=== PATIENT | female | born 1940 | race African-American/Black ===

== ENCOUNTER 2020-09-03 17:03 | Emergency (ER) | payer MEDICARE, MEDICAID ==
[~2020-09-03] VITALS: Ht 167.6 cm; Wt 76.0 kg
[2020-09-03] MEDS ORDERED: OLANZAPINE 10 MG/VIAL IM STA (18:50)
[2020-09-03] MEDS ORDERED: LORAZEPAM 2MG/ML CPJ IM ONE (19:30)
[2020-09-03 20:17] LABS: CLARITY URINE CLEAR (CLEAR); COLOR URINE YELLOW (YELLOW); KETONES URINE NEGATIVE (NEGATIVE); LEUKOCYTE ESTERASE URINE NEGATIVE (NEGATIVE); NITRITE URINE NEGATIVE (NEGATIVE); OCCULT BLOOD URINE NEGATIVE (NEGATIVE); PH URINE 7.5 (4.5-8.0); PROTEIN URINE NEGATIVE (NEGATIVE); SPECIFIC GRAVITY URINE 1.006 (1.005-1.030); UROBILINOGEN URINE 0.2 E.U./dL (0.2-1.0)
[2020-09-03] MEDS ORDERED: SODIUM CHLORIDE 0.9% 1,000 ML IV ONE (20:45)
[2020-09-03 20:58] LABS: *AMPHETAMINES SCREEN URINE NEGATIVE (NEGATIVE); *BARBITURATES SCREEN URINE NEGATIVE (NEGATIVE); *BENZODIAZEPINES SCREEN URINE NEGATIVE (NEGATIVE); *COCAINE SCREEN URINE NEGATIVE (NEGATIVE); CANNABINOID URINE SCREEN NEGATIVE (NEGATIVE); METHADONE URINE SCREEN NEGATIVE (NEGATIVE); OPIATES URINE SCREEN NEGATIVE (NEGATIVE); PHENCYCLIDINE URINE SCREEN NEGATIVE (NEGATIVE)
[2020-09-03 21:04] LABS: BG BASE EXCESS 1.1 mmol/L (-2.0-2.0); BG CARBOXYHEMOGLOBIN 0.1 % (0.5-1.5); BG DEOXYHEMOGLOBIN 5.3 % (0.0-5.0); BG HCO3 ACT 26.4 mmol/L (22.0-26.0); BG METHEMOGLOBIN 0.2 % (0.0-1.5); BG OXYGEN SATURATION 94.7 % (92.0-98.5); BG OXYHEMOGLOBIN 94.4 % (94.0-97.0); BG PCO2 44.6 mmHg (35.0-45.0); BG PO2 74.2 mmHg (75.0-100.0); BG SAMPLE SITE RIGHT RADIAL; BG TOTAL HEMOGLOBIN 11.3 g/dL (12.0-18.0); BG VENT MODE ROOM AIR
[2020-09-03 21:53] LABS: HEMATOCRIT. 32.2 % (36.0-48.0); HEMOGLOBIN. 10.3 g/dL (12.0-16.0); MEAN CORPUSCULAR HEMOGLOBIN 26.3 pg (28.0-32.0); MEAN CORPUSCULAR VOLUME 81.9 fL (81.0-99.0); MEAN PLATELET VOLUME 7.7 fl (7.4-10.4); PLATELET 225 x1000/uL (130-400); RED BLOOD CELL COUNT 3.93 mill/uL (4.2-5.4); RED CELL DISTRIBUTION WIDTH 17.2 % (11.6-14.6)
[2020-09-03 21:57] LABS: CHLORIDE 109 mEq/L (98-107)
[2020-09-03 22:04] LABS: ETHANOL BLOOD < 10 mg/dL
[2020-09-03 22:41] LABS: PLATELET ESTIMATE NORMAL
[2020-09-04] MEDS: POTASSIUM CHLORIDE 20MEQ TABLET SR PO ONE ×2 (13:04→20:12)
[2020-09-04] MEDS ORDERED: LORAZEPAM 1MG TABLET PO ONE (20:45)
[2020-09-04] MEDS ORDERED: TRAZODONE HCL 50MG TABLET PO SCH (22:00)
[2020-09-04] MEDS ORDERED: ACETAMINOPHEN 500MG TABLET PO ONE (23:00)
[2020-09-05] MEDS ORDERED: HYDROCODONE/ACETAMINOPHEN 5/325MG TABLET PO ONE (15:30)
[2020-09-05] MEDS ORDERED: LORAZEPAM 2MG/ML CPJ IM ONE (16:30)
[2020-09-05] MEDS ORDERED: OLANZAPINE 10 MG/VIAL IM ONE (20:30)
[2020-09-06] MEDS ORDERED: ACETAMINOPHEN 325MG TABLET PO ONE (11:00)
[2020-09-06] MEDS ORDERED: IBUPROFEN 600MG TABLET PO ONE (13:15)
[2020-09-06 16:00] VITALS: BP 130/80
== END 2020-09-06 19:48 | disposition home or self-care (01) ==
LOC: ER 17:03
DX: T43.592A Poisoning by other antipsychotics and neuroleptics, intentional self-harm, initial encounter (principal); T14.91XA Suicide attempt, initial encounter; I10 Essential (primary) hypertension; D64.9 Anemia, unspecified; F19.10 Other psychoactive substance abuse, uncomplicated; Z93.0 Tracheostomy status; Z98.890 Other specified postprocedural states; Z87.891 Personal history of nicotine dependence; Y92.89 Other specified places as the place of occurrence of the external cause
CPT/HCPCS: 36415; 36600; 70450; 71045; 80053; 80305; 80307; 80320; 80329; 81003; 82375; 82805; 84484; 85025; 93005; 96372; 99285; J2060; J3490; G0480

== ENCOUNTER 2022-02-20 14:50 | Emergency (ER) | payer MEDICARE, MEDICAID, BC ==
[~2022-02-20] VITALS: Ht 154.9 cm; Wt 57.0 kg
[2022-02-20 14:53] VITALS: BP 156/77
== END 2022-02-20 18:16 | disposition home or self-care (01) ==
LOC: ER 14:50
DX: T17.408A Unspecified foreign body in trachea causing other injury, initial encounter (principal); R51.9 Headache, unspecified; I10 Essential (primary) hypertension; Z93.0 Tracheostomy status; Z98.890 Other specified postprocedural states; X58.XXXA Exposure to other specified factors, initial encounter; Y93.89 Activity, other specified; Y92.89 Other specified places as the place of occurrence of the external cause; Y99.8 Other external cause status
CPT/HCPCS: 70490; 71045; 71250; 99284